=== PATIENT | female | born 1990 | race Caucasian/White ===

== ENCOUNTER → 2024-03-08 07:54 | Outpatient (REF) | payer BC, SELFPAY ==
[2024-03-08 09:24] LABS: % Basophils 0.8 % (0-2); % Eosinophils 2.7 % (0-6); % Lymphocytes 45.1 % (20.5-51.1); % Monocytes 13.3 % (1.7-9.3); % Neutrophils 38.1 % (42.2-75.2); Absolute Eosinophils 0.1 10^3/uL (0-0.7); Absolute Lymphocytes 1.2 10^3/uL (1.2-3.4); Absolute Monocytes 0.3 10^3/uL (0.1-0.6); Hematocrit 40.2 % (37.0-47.0); Hemoglobin 13.9 g/dL (12.0-16.0); Mean Corp Hgb Conc. 34.6 g/dL (33.0-37.0); Mean Corpuscular Hgb 30.9 pg (27.0-31.0); Mean Corpuscular Volume 89.3 fL (81.0-99.0); Mean Platelet Volume 11.2 fL (7.4-10.4); Nucleated Red Blood Cells % 0 %; Platelet Count 192 10^3/uL (130-400); Red Cell Dist. Width 12.3 % (11.5-14.5); White Blood Cell Count 2.6 10^3/uL (4.8-10.8)
[2024-03-08 11:22] LABS: ALT (SGPT) 22 U/L (0-35); AST (SGOT) 24 U/L (14-36); Albumin 4.8 g/dl (3.5-5.0); Alkaline Phosphatase 62 U/L (38-126); Blood Urea Nitrogen 10 mg/dl (7-17); Calcium 9.8 mg/dl (8.4-10.2); Carbon Dioxide 28 mmol/L (22-30); Chloride 105 mmol/L (98-107); Glucose 91 mg/dl (70-99); HDL Cholesterol 64 mg/dl; LDL Cholesterol, Calculated 115 mg/dl; Potassium 4.3 mmol/L (3.5-5.1); Sodium 144 mmol/L (135-145); Total Bilirubin 1.2 mg/dl (0.2-1.3); Total Cholesterol 193 mg/dl (50-199); Total Protein 7.8 g/dl (6.3-8.2); Triglyceride 72 mg/dl (10-149); Very Low Density Lipoprotein 14 mg/dl (0-30); eGFR > 60.00
[2024-03-08 11:42] LABS: TSH 1.28 uIU/ml (0.47-4.68)
== END ==
LOC: REG 07:54
PROVIDERS: ATTENDING PHYSICIAN Internal Medicine
DX: Z00.00 Encounter for general adult medical examination without abnormal findings (principal); E78.5 Hyperlipidemia, unspecified; R53.83 Other fatigue
CPT/HCPCS: 36415; 80053; 80061; 84443; 85025

== ENCOUNTER 2025-06-11 12:36 | Emergency (ER) | payer BC, SELFPAY ==
[2025-06-11] VITALS (7 sets, daily range): BP systolic 118–137; BP diastolic 70–94; PULSE 63–85; BMI 22.2
[2025-06-11 13:03] LABS: Hematocrit 42.6 % (37.0-47.0); Hemoglobin 14.8 g/dL (12.0-16.0); Mean Corp Hgb Conc. 34.7 g/dL (33.0-37.0); Mean Corpuscular Volume 87.1 fL (81.0-99.0); Platelet Count 213 10^3/uL (130-400); Red Cell Dist. Width 12.6 % (11.5-14.5)
[2025-06-11 13:11] LABS: ALT (SGPT) 24 U/L (0-35); AST (SGOT) 27 U/L (14-36); Albumin 5.6 g/dl (3.5-5.0); Alkaline Phosphatase 68 U/L (38-126); Blood Urea Nitrogen 11 mg/dl (7-17); Calcium 10.0 mg/dl (8.4-10.2); Carbon Dioxide 23 mmol/L (22-30); Chloride 102 mmol/L (98-107); Estimated Creatinine Clearance 104 ml/min; Glucose 117 mg/dl (70-99); Potassium 3.5 mmol/L (3.5-5.1); Sodium 137 mmol/L (135-145); Total Protein 9.4 g/dl (6.3-8.2); eGFR > 60.00
[2025-06-11 13:24] LABS: Nucleated Red Blood Cells % 0 %
--- NOTE | 2025-06-11 13:46 | ED.GENMED ---
History of Present Illness
<Kwesi Bruner PA-C - Last Filed: 06/11/25 14:54>
General
Chief Complaint: Fainting Sensation
Source: patient
Exam Limitations: none
Time Seen by Provider: 06/11/25 12:57
History of Present Illness
History of Present Illness:
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 She states she was receiving anesthetic injection and they placed a topical anesthetic and soon after this she developed acute going
to pass out. There is no chest pain or palpitations. No recent travel or surgery. She states her face is still numb from the anesthetic. She denies sensation of swollen throat. No rash. No known allergies to medications. No other complaints
Phy Exam
<SIS Mckinley Last Filed: 06/11/25 14:54>
Physical Exam
Physical Exam:
General: Well-appearing female no acute respiratory distress
HEENT: Normal cephalic atraumatic posterior pharynx patent no trismus or drooling no swelling
Heart: Regular rate and rhythm
Lungs: Clear no wheeze
Extremities: No cyanosis or edema
Course
<SIS Mckinley Last Filed: 06/11/25 14:54>
Orders/Labs/Results
Orders:
Orders
06/11/25 12:45
EKG [Electrocardiogram (*1)] Urgent
Reason for Study: Tachycardia
EKG- Treatment ONCE
Complete Blood Count/With Diff Urgent
Comprehensive Metabolic Panel Urgent
HCG, Serum Qualitative Screen Urgent
Comment: ADD ON
06/11/25 13:37
Electrocardiogram (*1) Urgent
Reason for Study: Syncope
0.9% Sodium Chloride 1000 ml [Nss] 1,000 ml IV BOLUS
06/11/25 13:38
Orthostatic VS- Treatment ONCE
06/11/25 13:45
Add On- LAB Urgent
Tests Added?: hcg
Abnormal Lab Results
06/11/25
12:45
WBC 2.4 L* 10^3/uL
(4.8-10.8)
MPV 10.8 H fL
(7.4-10.4)
Absolute Neuts (auto) 1.0 L 10^3/uL
(1.4-6.5)
Absolute Lymphs (auto) 1.1 L 10^3/uL
(1.2-3.4)
Neutrophils % 41.2 L %
(42.2-75.2)
Monocytes % 10.0 H %
(1.7-9.3)
Glucose 117 H mg/dl
(70-99)
Total Bilirubin 1.4 H mg/dl
(0.2-1.3)
Total Protein 9.4 H g/dl
(6.3-8.2)
Albumin 5.6 H g/dl
(3.5-5.0)
06/11/25 12:45
06/11/25 12:45
Vital Signs
Initial and Last Documented VS:
Initial Vital Signs
Temp Pulse Resp BP Pulse Ox
98.1 F 76 17 136/94 100
06/11/25 12:38 06/11/25 12:38 06/11/25 12:38 06/11/25 12:38 06/11/25 12:38
Last Documented Vital Signs
Temp Pulse Resp BP Pulse Ox
98.1 F 83 19 126/86 100
06/11/25 12:38 06/11/25 13:50 06/11/25 13:50 06/11/25 13:50 06/11/25 13:50
<Lizett Gomez MD - Last Filed: 06/11/25 14:41>
Orders/Labs/Results
Orders:
Orders
06/11/25 12:45
EKG [Electrocardiogram (*1)] Urgent
Reason for Study: Tachycardia
EKG- Treatment ONCE
Complete Blood Count/With Diff Urgent
Comprehensive Metabolic Panel Urgent
HCG, Serum Qualitative Screen Urgent
Comment: ADD ON
06/11/25 13:37
Electrocardiogram (*1) Urgent
Reason for Study: Syncope
0.9% Sodium Chloride 1000 ml [Nss] 1,000 ml IV BOLUS
06/11/25 13:38
Orthostatic VS- Treatment ONCE
06/11/25 13:45
Add On- LAB Urgent
Tests Added?: hcg
Abnormal Lab Results
06/11/25
12:45
WBC 2.4 L* 10^3/uL
(4.8-10.8)
MPV 10.8 H fL
(7.4-10.4)
Absolute Neuts (auto) 1.0 L 10^3/uL
(1.4-6.5)
Absolute Lymphs (auto) 1.1 L 10^3/uL
(1.2-3.4)
Neutrophils % 41.2 L %
(42.2-75.2)
Monocytes % 10.0 H %
(1.7-9.3)
Glucose 117 H mg/dl
(70-99)
Total Bilirubin 1.4 H mg/dl
(0.2-1.3)
Total Protein 9.4 H g/dl
(6.3-8.2)
Albumin 5.6 H g/dl
(3.5-5.0)
06/11/25 12:45
06/11/25 12:45
Vital Signs
Initial and Last Documented VS:
Initial Vital Signs
Temp Pulse Resp BP Pulse Ox
98.1 F 76 17 136/94 100
06/11/25 12:38 06/11/25 12:38 06/11/25 12:38 06/11/25 12:38 06/11/25 12:38
Last Documented Vital Signs
Temp Pulse Resp BP Pulse Ox
98.1 F 83 19 126/86 100
06/11/25 12:38 06/11/25 13:50 06/11/25 13:50 06/11/25 13:50 06/11/25 13:50
<Kwesi Bruner PA-C - Last Filed: 06/11/25 14:54>
MDM/Problems Addressed
Differential Diagnosis Includes:
Near syncope. Question vasovagal response versus arrhythmia versus orthostasis
Check labs. Reviewed labs white count is low which is not new for the patient. She is aware of this. EKGs demonstrate sinus rhythm without ischemic changes
Will check orthostatics and give her fluids
<Kwesi Bruner PA-C - Last Filed: 06/11/25 14:54>
*Pulse Oximetry
SaO2: 100
Oxygen Mode of Delivery: Room air
Patient hypoxic: no
*Critical Care Note
Total Time (30-74mins, 75-104mins- exclusive of procedures): Not Applicable
<Kwesi Bruner PA-C - Last Filed: 06/11/25 14:54>
Update Note
Update Note:
Orthostatic vital signs reviewed without significant drop in blood pressure upon standing. Patient was hydrated here. Discussed with emergency room attending. Suspect vasovagal episode. Stable for discharge
ED Attending Note
<Kwesi Bruner PA-C - Last Filed: 06/11/25 14:54>
-
Portions of this chart may have been created with voice recognition software.� Occasional wrong word or��sound alike� substitutions may have occurred due to the inherent limitations of voice recognition software.
<Lizett Gomez MD - Last Filed: 06/11/25 14:41>
ED Attending Note
Patient seen and examined by attending physician: Yes
I performed the substantive portion of visit, reviewed & personally made and approve the management plan that is documented in note by myself or JONE.: Yes
ED Attending Note:
I have seen and evaluated the patient with a [id number] encounter. I have spoken to the [JONE] and involved in the medical history, the physical exam, medical decision making.
Evaluation and management service: agree unless noted differently below.
Results interpretation: agree unless noted differently below.
35-year-old woman who is otherwise presenting to the emergency department near syncopal event. Patient is at the dentist when they were texting her with numbing medication and put on top of diaphoretic he. She felt hot for last and felt like she
was going to pass out. They did not inject a large amount of anesthesia. Patient denies any palpitations chest pain nausea vomiting difficulty breathing or abdominal pain. From evaluation patient is resting comfortably. She does appear
well-hydrated. Abdomen soft nondistended nontender. Heart is regular rate and rhythm. History and exam consistent with vasovagal response. History exam not consistent with cardiac etiology. Will check blood work EKG test. Will give
fluids. Anticipate discharge.
Discharge Plan
Departure
Patient Disposition: Home (Routine Discharge)
Date of Disposition: 06/11/25
Time of Disposition: 14:53
Patient with high blood pressure during this ER visit?: No
Discharge Problem:
Syncope, near
Instructions: Near Fainting (DC)
Prescriptions:
No Action
No Current Medications
0
Referrals:
Segun Ga MD [Family Provider, Internal Medicine]
Activity Restrictions/Additional Instructions:
Rest. Stay hydrated. Turn if worse otherwise follow-up with your doctor
Interventions
Interventions:
*Risk Screen - Suicide Last Done: 06/11/25 12:38
*General Assessment Last Done: 06/11/25 12:38
*Neglect/Abuse Screening Last Done: 06/11/25 12:38
*ED- Fall Risk Assessment Last Done: 06/11/25 12:38
*ED COVID-19 Vaccine History Last Done: 06/11/25 12:38
*ED Influenza Vaccine History Last Done: 06/11/25 12:38
ED- Cardiac Assessment Last Done: 06/11/25 13:04
ED- Neurological Assessment Last Done: 06/11/25 13:04
Discharge Date and Time
Print Language: AZERI
[2025-06-11] MEDS: NSS 1000 IV (13:53)
[2025-06-11 14:07] LABS: HCG, Serum Qualitative Screen Negative
== END 2025-06-11 15:33 | disposition home or self-care (01) ==
LOC: EMR 12:36
PROVIDERS: Emergency Medicine; EMERGENCY PHYSICIAN Student in an Organized Health Care Education/Training Program; FAMILY PHYSICIAN Internal Medicine
DX: R55 Syncope and collapse (principal)
CPT/HCPCS: 99284; 96360; 80053; 84703; 85025; 93005